=== PATIENT | female | born 2000 | race American Indian/Alaskan Native ===

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

== ENCOUNTER 2018-08-10 20:09 | Emergency (ER) | payer SELFPAY ==
[2018-08-10] MEDS ORDERED: Amoxicillin-Clav 875-125 mg Tab PO STA (21:38)
--- NOTE | 2018-08-10 21:52 | C.PDOC ---
History Of Present Illness 18 year old female presents c/o cough, cold, sore throat, body aches, pleuritic CP, and nausea x5 days. Patient has only been taking Mucinex without relief and has not seen PMD. She denies any fevers, or sick contacts. Time Seen by Provider: 08/10/18 20:52 Chief Complaint (Nursing): Flu-like Symptoms History Per: Patient History/Exam Limitations: no limitations Onset/Duration Of Symptoms: Days (5) Current Symptoms Are (Timing): Still Present Associated Symptoms: Sore Throat, Cough, Nausea, Other (body aches). denies: Fever, Chills Recent travel outside of the [place]: No Additional History Per: Patient Past Medical History Reviewed: Historical Data, Nursing Documentation, Vital Signs Vital Signs: Last Vital Signs Temp 99.4 F 08/10/18 20:24 Pulse 88 08/10/18 20:24 Resp 16 08/10/18 20:24 BP 129/88 08/10/18 20:24 Pulse Ox 100 08/10/18 20:24 Primary Care Provider: [place] Guevara - Medical History PMH: No Chronic Diseases Surgical History: No Surg Hx Family History: States: Unknown Family Hx - Social History Hx Alcohol Use: No Hx Substance Use: No - Immunization History Hx Tetanus Toxoid Vaccination: No Hx Influenza Vaccination: No Hx Pneumococcal Vaccination: No Review Of Systems Constitutional: Positive for: Other (body aches). Negative for: Fever, Chills ENT: Positive for: Throat Pain Cardiovascular: Positive for: Chest Pain (with cough) Respiratory: Positive for: Cough, Pleuritic Pain. Negative for: Shortness of Breath Gastrointestinal: Positive for: Nausea. Negative for: Vomiting, Abdominal Pain Genitourinary: Negative for: Dysuria Skin: Negative for: Rash Neurological: Negative for: Weakness, Numbness Physical Exam - Physical Exam Appears: Non-toxic, No Acute Distress, Other (sitting on chair, comfortable) Skin: Warm, Dry Head: Atraumatic, Normacephalic Eye(s): bilateral: Normal Inspection Oral Mucosa: Moist Throat: Erythema (erythematous tonsils, not enlarged ), Exudate (exudate on left tonsil ) Neck: Normal ROM, Supple Lymphatic: Adenopathy (submandibular ) Cardiovascular: Rhythm Regular, No Murmur Respiratory: Normal Breath Sounds, No Rales, No Rhonchi, No Wheezing Gastrointestinal/Abdominal: Soft, No Tenderness, No Distention, No Guarding Neurological/Psych: Oriented x3, Normal Speech, Normal Cognition ED Course And Treatment O2 Sat by Pulse Oximetry: 100 (on RA) Pulse Ox Interpretation: Normal Medical Decision Making Medical Decision Making: Plan: Tylenol 650mg PO Zofran 4mg PO Augmentin 875mg-125mg PO pt feeling better in ed, will d/c with augmentin, tylenol and zofran Disposition Counseled Patient/Family Regarding: Diagnosis, Need For Followup, Rx Given - Disposition Referrals: [facility] [Outside] Chico Guevara MD [Staff Provider] - Disposition: HOME/ ROUTINE Disposition Time: 22:16 Condition: GOOD Additional Instructions: Drink increased fluids. Gargle warm salty water. Tylenol for pain. Take antibiotics until complete. Follow up with Dr Guevara in 2-3 days. COntinue with mucinex. Prescriptions: Acetaminophen [Tylenol 325mg tab] 650 mg PO Q4 #50 tab Amoxicillin/Clavulanate [Augmentin 875 MG-125 MG] 1 tab PO BID #20 tab Ondansetron ODT [Zofran ODT] 4 mg PO TID #12 odt Instructions: Sore Throat, Adult (DC), Bacterial Upper Respiratory Infection, Adult (DC) Forms: [facility] ([place]otho), General Discharge Instructions - Clinical Impression Clinical Impression: Influenza-like illness, Pharyngitis - PA / [employer] / Resident Statement MD/DO has reviewed & agrees with the documentation as recorded. - Scribe Statement The provider has reviewed the documentation as recorded by the Opal Nolasco All medical record entries made by the Opal were at my direction and personally dictated by me. I have reviewed the chart and agree that the record accurately reflects my personal performance of the history, physical exam, medical decision making, and the department course for this patient. I have also personally directed, reviewed, and agree with the discharge instructions and disposition.
[2018-08-10] MEDS ORDERED: Amoxicillin-Clav 875-125 mg Tab PO ONE (22:00)
[2018-08-10 22:34] VITALS: BP 117/83; PULSE 65; RESP 18; TEMP 98.3
[2018-08-13 07:00] VITALS: O2SAT 100
== END 2018-08-10 22:34 | disposition home or self-care (01) ==
LOC: C.ER 20:09
DX: J11.1 Influenza due to unidentified influenza virus with other respiratory manifestations (principal)